=== PATIENT | male | born 1940 | race Caucasian/White ===

== ENCOUNTER 2016-11-25 13:42 | Emergency (ER) | payer MEDICARE, BC ==
[~2016-11-25 13:42] MED LIST: BENADRYL25 M1 PO; EPIPEN0.3 MG/0.1 IM; PEPCID AC20 M2 PO; PREDNISONE PO; TOLECTIN PO; ZYRTEC PO
== END 2016-11-25 14:58 | disposition home or self-care (01) ==
LOC: CED 13:42 → CFTX 13:42
DX: S61.411A Laceration without foreign body of right hand, initial encounter (principal); G62.9 Polyneuropathy, unspecified; Z79.899 Other long term (current) drug therapy; W45.8XXA Other foreign body or object entering through skin, initial encounter; Y92.098 Other place in other non-institutional residence as the place of occurrence of the external cause
CPT/HCPCS: 12001; 99283